=== PATIENT | female | born 1960 | race Caucasian/White ===

== ENCOUNTER 2022-02-17 10:46 | Outpatient (CLI) | payer BC | END 2022-02-17 10:47 | disposition home or self-care (01) | LOC: CSHLAB 10:46 | PROVIDERS: ATTEND Otolaryngology Otolaryngic Allergy | DX: Z01.818 Encounter for other preprocedural examination (principal); Z20.822 Contact with and (suspected) exposure to COVID-19 | CPT/HCPCS: 85014; 87811; 93005; 93010 ==

== ENCOUNTER 2022-02-20 06:58 | Day surgery (SDC) | payer BC ==
[2022-02-17 11:39] VITALS: BMI 29.0
[2022-02-20] MEDS ORDERED: Lidocaine 1% w/Epinephrine 1:100K 20 ML VIAL ONE (08:55)
[2022-02-20] MEDS ORDERED: Lidocaine 1% MPF 2 ML VIAL ONE (09:27)
[2022-02-20] MEDS ORDERED: PROPOFOL 20 ML ONE (10:40)
[2022-02-20] MEDS ORDERED: Midazolam HCl 2 mg/2 ml Vial ONE (10:40)
[2022-02-20] MEDS ORDERED: Rocuronium Bromide 10 MG/ML (10ML VIAL) ONE (10:40)
[2022-02-20] MEDS ORDERED: Fentanyl 100 MCG/2 ML VIAL ONE (10:40)
[2022-02-20] MEDS ORDERED: Dexamethasone 20 MG/5 ML VIAL ONE (10:41)
[2022-02-20] MEDS ORDERED: Ondansetron PF 4 MG/2 ML Vial ONE (10:41)
[2022-02-20] MEDS ORDERED: CEFAZOLIN 1 GM VIAL ONE (10:44)
[2022-02-20] MEDS ORDERED: Glycopyrrolate 0.2 MG/ML 5 ML SYRINGE ONE (11:40)
[2022-02-20] MEDS ORDERED: Acetaminophen 500 MG TAB ONE (13:19)
== END 2022-02-20 13:40 | disposition home or self-care (01) ==
LOC: CSHSDC 06:58
PROVIDERS: ATTEND Otolaryngology Otolaryngic Allergy
PROC: 0GBR0ZZ Excision of Parathyroid Gland, Open Approach (ICD-10-PCS; principal; 2022-02-20)
DX: E21.3 Hyperparathyroidism, unspecified (principal); M81.0 Age-related osteoporosis without current pathological fracture; H61.23 Impacted cerumen, bilateral; I25.10 Atherosclerotic heart disease of native coronary artery without angina pectoris; J45.909 Unspecified asthma, uncomplicated; E03.9 Hypothyroidism, unspecified; Z87.442 Personal history of urinary calculi; Z79.899 Other long term (current) drug therapy; Z87.891 Personal history of nicotine dependence; Z20.822 Contact with and (suspected) exposure to COVID-19; Z90.710 Acquired absence of both cervix and uterus; Z98.890 Other specified postprocedural states
CPT/HCPCS: 36415; 83970; 88305; 88331; J0690; J1100; J2250; J2405; J2704; J3010